=== PATIENT | female | born 2000 | race Two or more races ===

== ENCOUNTER 2024-11-11 08:04 | Emergency (ER) | payer BC, MEDICAID, SELFPAY ==
[2024-11-11 08:14] VITALS: BP 150/84; PULSE 71; RESP 18; TEMP 36.7; O2SAT 100; BMI 35.4
--- NOTE | 2024-11-11 08:24 | XR_ITS ---
Examination: Complete OB ultrasound, less than 14 weeks, transabdominal Date and time of exam: November 11, 2024 0920 hrs. Indications: Pelvic pain beginning 2 weeks ago Technique: Obstetrical ultrasound images less than 14 weeks performed via transabdominal imaging Findings: A normal shaped single intrauterine gestation is present in the uterus. pole 3.6 cm corresponds to 10 weeks 3 days gestational age Cardiac motion 160 BPM Ultrasonographic survey of visible and placental structures unremarkable. Amniotic fluid volume appears appropriate for this estimated gestational age. Right ovary 2.3 x 2.4 cm arterial flow Left ovary 3.7 x 3.6 cm arterial flow Impression: Viable intrauterine gestation 10 weeks 3 days.
[2024-11-11 09:11] LABS: Collection Type, Urine Clean Catch; RBC,Urine 0 /hpf (0-3); Squamous Epithelial Cell,Urine 0 /hpf (0-5); WBC,Urine 0 /hpf (0-5)
[2024-11-11 09:20] LABS: Basophils # (Auto) 0.1 Thou/mm3 (0.0-0.2); Basophils % (Auto) 1 % (0-2.5); Eosinophils # (Auto) 0.1 Thou/mm3 (0.0-0.5); Eosinophils % (Auto) 1 % (0-10); Hematocrit 40.1 % (36.0-46.0); Hemoglobin 13.7 g/dL (12.0-16.0); Immature Granulocytes % (Auto) 0 % (0-0); Immature Granulocytes Auto 0.04 Thou/mm3 (0.00-0.00); Lymphocytes # (Auto) 1.8 Thou/mm3 (1.0-4.8); Lymphocytes % (Auto) 20 % (10-50); Mean Corpuscular HGB Conc 34.2 g/dl (31.0-37.0); Mean Corpuscular Hemoglobin 30.9 pg (25.0-35.0); Mean Corpuscular Volume 91 fL (80-100); Monocytes # (Auto) 0.9 Thou/mm3 (0.0-0.8); Monocytes % (Auto) 10 % (0-12); Neutrophils # (Auto) 6.1 Thou/mm3 (1.8-7.7); Neutrophils % (Auto) 68 % (37-80); Nucleated Red Blood Cell % 0 /100 WBC (0); Platelet Count 238 Thou/mm3 (140-440); RDW Standard Deviation 43.4 fL (36.4-46.3); Red Blood Count 4.43 Miln/mm3 (4.00-5.20); White Blood Count 8.9 Thou/mm3 (3.6-11.0)
[2024-11-11 09:25] LABS: Bilirubin,Urine Negative (Negative); Blood,Urine Negative (Negative); Clarity,Urine Clear (Clear/Hazy); Color,Urine Colorless (Lt Yel-Yel); Glucose, Urine Negative (Negative); Ketones,Urine Negative (Negative); Leukocyte Esterase,Urine Negative (Negative); Nitrite,Urine Negative (Negative); PH,Urine 6.5 (5.0-7.0); Protein,Urine Negative (Neg - Trace); Specific Gravity,Urine 1.005 (1.001-1.035); Urobilinogen,Urine Negative mg/dL (0.0-1.0)
[2024-11-11 09:51] LABS: Alanine Aminotransferase 30 U/L (10-49); Albumin, Serum 4.6 gm/dL (3.5-5.0); Albumin/Globulin Ratio 1.8 (1.2-2.2); Alkaline Phosphatase 45 U/L (46-116); Anion Gap 8 (7-16); Aspartate Amino Transferase 16 U/L (0-34); BUN/Creatinine Ratio 10 Ratio (12-20); Bilirubin,Total 0.4 mg/dL (0.3-1.2); Blood Urea Nitrogen 6 mg/dL (9-23); Calcium 9.6 mg/dL (8.3-10.6); Calcium (Corrected) 9.6 mg/dL (8.5-10.1); Carbon Dioxide 23.1 mMol/L (20.0-31.0); Chloride 104 mMol/L (98-107); Creatinine (Component) 0.6 mg/dL (0.6-1.3); Estimated Creatinine Clearance 169.1 mL/min (>60); Globulin 2.5 gm/dL (2.3-3.5); Glucose 93 mg/dL (74-106); Osmolality,Calculated 267 (275-295); Potassium 3.8 mMol/L (3.4-5.1); Sodium 135 mMol/L (136-145); Total Protein 7.1 gm/dL (5.7-8.2); eGFR > 60 See Note
[2024-11-11 10:26] LABS: Beta HCG,Quantitative 49260 mIU/mL (<5.0)
--- NOTE | 2024-11-11 10:42 | EDNOTE_ITS ---
<Statement entered by Debra Bolden MD - 11/12/24 11:46> As co-signing physician, I was present and available for consult prn. I concur with the plan and care as documented by the midlevel provider. ED OB Contraction Preg RMI/HPI General Chief complaint: OB/Uterine Contractions Stated complaint: 14 WEEKS IUP / AB PAIN Time Seen by Provider: 11/11/24 08:07 Arrival date/time: 11/11/24 08:04 24-year-old female presents to the emergency department complaints of pelvic pain patient reports being approximately 14 weeks patient reports no dysuria polyuria patient reports no fever nausea vomiting Limitations: no limitations Related Data Home Medications ?Medication ?Instructions ?Recorded ?Confirmed albuterol sulfate 90 mcg/actuation 2 puff inhalation Q6H PRN 01/14/18 01/14/18 aerosol inhaler (Ventolin HFA) Shortness Of Breath Or Wheezing beclomethasone dipropionate 40 1 puff inhalation Q12H PRN 01/14/18 01/14/18 mcg/actuation aerosol inhaler Shortness Of Breath (Qvar) sumatriptan succinate 50 mg tablet 0.5 - 1 tab PO QDAY PRN Migraine 01/14/18 01/14/18 Headache Allergies Allergy/AdvReac Type Severity Reaction Status Date / Time codeine Allergy Mild Hives Verified 11/11/24 08:05 Review of Systems Review of Systems Systems Reviewed: All systems reviewed, normal except as documented Constitutional Constitutional: Reports system reviewed and no additional complaints, except as documented, Denies fever(s) and Denies headache(s) Eyes Eyes: Reports system reviewed and no additional complaints, except as documented and Denies blurry vision ENT Ears, Nose, Mouth, and Throat: Reports system reviewed and no additional complaints, except as documented, Denies headache(s), Denies nasal congestion and Denies nasal discharge Cardiovascular Cardiovascular: Reports system reviewed and no additional complaints, except as documented, Denies chest pain and Denies dyspnea Respiratory Respiratory: Reports system reviewed and no additional complaints, except as documented, Denies chest congestion, Denies cough and Denies dyspnea Gastrointestinal Gastrointestinal: Reports system reviewed and no additional complaints, except as documented, Denies abdominal pain, Denies nausea and Denies vomiting Genitourinary Genitourinary: Reports system reviewed and no additional complaints, except as documented, Denies abnormal vaginal bleeding and Reports pelvic pain Integumentary/Breasts Skin/Breast: Reports system reviewed and no additional complaints, except as documented and Denies rash Neurologic Neurologic: Reports system reviewed and no additional complaints, except as documented, Reports as per HPI and Denies headache(s) Past Medical History Past Medical History NEUROLOGIC: Positive Neurological Disorders and Migraine RESPIRATORY: Positive Asthma Social History SMOKING STATUS: Never smoker ED Exam General Limitations: Present no limitations General appearance: Present alert and in no apparent distress Head Head exam: Present atraumatic Eye Eye exam: Present normal appearance, PERRL and EOMI ENT ENT exam: Present normal exam, normal oropharynx and mucous membranes moist Neck Neck exam: Present normal inspection, full ROM and trachea midline Chest Chest inspection: Present normal inspection and symmetric chest wall rise Respiratory Respiratory exam: Present normal lung sounds bilaterally Cardiovascular Cardiovascular exam: Present regular rate, normal rhythm and normal heart sounds Abdominal Exam Abdominal exam: Present soft and normal bowel sounds Extremities Exam Extremities exam: Present normal inspection and full ROM Back Exam Back exam: Present normal inspection and full ROM Neurological Exam Neurological exam: Present alert, oriented X3 and CN II-XII intact Psychiatric Psychiatric exam: Present normal affect and normal mood Skin Skin exam: Present warm, dry, intact and normal color Course Quality Measures none Orders Category Date Time Status US OB <= 14 weeks fetus Stat Exams 11/11/24 08:24 Completed ABO/RH Type Stat Lab 11/11/24 08:57 Completed Beta HCG,Quantitative Stat Lab 11/11/24 08:57 Completed CBC Stat Lab 11/11/24 08:57 Completed Comprehensive Metabolic Panel Stat Lab 11/11/24 08:57 Completed UA [Urinalysis] Stat Lab 11/11/24 08:49 Completed Urine Culture Stat Lab 11/11/24 08:49 Received Vital Signs Vital signs: Vital Signs Temperature 98.0 F 11/11/24 08:14 Pulse Rate 71 11/11/24 08:14 Respiratory Rate 18 11/11/24 08:14 Blood Pressure 150/84 H 11/11/24 08:14 Pulse Oximetry (%) 100 11/11/24 08:14 Oxygen Delivery Method Room Air 11/11/24 08:14 O2 saturation 100% room air within normal limits OB/Uterine Contractions MDM Narrative MDM Narrative:: 24-year-old female presents to the emergency department complaints of pelvic pain patient reports being approximately 14 weeks patient reports no dysuria polyuria patient reports no fever nausea vomiting On exam patient has no right-sided abdominal pain patient reports pelvic pain Lab work as well as ultrasound obtained no acute emergent findings noted Patient discharged home in no distress to follow-up with primary care doctor in the next 24 to 48 hours and for any worsening symptoms to return to the ER immediately Patient data External records reviewed:: [facility] previous records Clinical information provided by:: patient Social determinants that could affect healthcare access:: none Patient has the following chronic illnesses:: none How is presenting disease/condition affected by chronic disease/condition?: no chronic disease Evaluation data The following diagnostics were reviewed and interpreted by me:: lab results and radiology exam(s) Lab and/or radiology exams considered but not ordered:: Labs and radiology obtained Interpretation Summary: Reviewed by me Medications / Prescriptions Medications or Prescriptions considered but not ordered:: No meds Medication administrations:: No meds Consultations Consultation(s) initiated? (list below): No Diagnosis OB Contractions Differential Diagnosis: other (Threatened , missed , pelvic pain ) Most likely diagnosis given after review of the tests above:: Pelvic pain during Admission Indicated Admission indicated?: not indicated Explain why admission is indicated or not indicated:: no criteria Admission Request Was there a request for admission?: No Disposition Plan Disposition Plan: Discharge Discharge Attestation Discharge Attestation: The patient and all family members were given an opportunity to ask questions and understood the discharge instructions. Discharge instructions specifically effects, indications for sooner follow up or return to the emergency department, and the expected course of current diagnosis. Patient condition: Stable Discharge Plan Plan Patient Disposition: HOME (Self Care) Disposition Comment: Stable Prescriptions/Referrals Prescriptions/Med Rec: No Action sumatriptan succinate 50 mg Tablet 0.5 - 1 tab PO QDAY PRN (Reason: Migraine Headache) albuterol sulfate [Ventolin HFA] 90 mcg/actuation Hfa Aerosol Inhaler 2 puff INHALATION Q6H PRN (Reason: Shortness Of Breath Or Wheezing) beclomethasone dipropionate [Qvar] 40 mcg/actuation Aerosol 1 puff INHALATION Q12H PRN (Reason: Shortness Of Breath) Referrals: Dianne Wade FNP [Primary Care Provider] - 11/12/24 Problem List Clinical Impression: Pelvic pain affecting Patient/Caregiver Discharge Instructions Education Materials: Medicine for Pain Additional Instructions: Please follow up with your primary care doctor in the next 24-48hrs for any worsening symptoms return here immediately Print Language: Slovenian Stand Alone Forms: Asha Award Info., Work/School Release, Patient Portal Info Letter PA/GUITAR REPAIR TECHNICIAN Supervising Physician PA/GUITAR REPAIR TECHNICIAN Supervising Physician: Dr. Fuentes
== END 2024-11-11 11:21 | disposition home or self-care (01) ==
PROVIDERS: Nurse Practitioner Primary Care; Emergency Provider Emergency Medicine; PCP Registered Nurse Community Health
DX: O26.892 Other specified pregnancy related conditions, second trimester (principal); R10.2 Pelvic and perineal pain; Z3A.14 14 weeks gestation of pregnancy
CPT/HCPCS: 36415; 76801; 80053; 81001; 84702; 85025; 86900; 86901; 87086; 99284

== ENCOUNTER 2025-05-31 00:54 | Inpatient (IN) | payer BC, MEDICAID, SELFPAY ==
[2025-05-31] VITALS (29 sets, daily range): BP systolic 88–142; BP diastolic 50–85; PULSE 68–93; RESP 16–18; TEMP 36.4–37.1; O2SAT 96–98; BMI 41.8
[2025-05-31 02:26] LABS: Collection Type, Urine Clean Catch
[2025-05-31 02:29] LABS: Basophils # (Auto) 0.0 Thou/mm3 (0.0-0.2); Basophils % (Auto) 0 % (0-2.5); Eosinophils # (Auto) 0.1 Thou/mm3 (0.0-0.5); Eosinophils % (Auto) 1 % (0-10); Hematocrit 35.4 % (36.0-46.0); Hemoglobin 12.4 g/dL (12.0-16.0); Immature Granulocytes Auto 0.05 Thou/mm3 (0.00-0.00); Lymphocytes # (Auto) 1.9 Thou/mm3 (1.0-4.8); Lymphocytes % (Auto) 22 % (10-50); Mean Corpuscular HGB Conc 35.0 g/dl (31.0-37.0); Mean Corpuscular Hemoglobin 30.9 pg (25.0-35.0); Mean Corpuscular Volume 88 fL (80-100); Monocytes # (Auto) 1.2 Thou/mm3 (0.0-0.8); Monocytes % (Auto) 13 % (0-12); Neutrophils # (Auto) 5.6 Thou/mm3 (1.8-7.7); Neutrophils % (Auto) 64 % (37-80); Nucleated Red Blood Cell # 0.00 Thou/mm3 (0.00-0.00); Nucleated Red Blood Cell % 0 /100 WBC (0); Platelet Count 176 Thou/mm3 (140-440); RDW Standard Deviation 44.3 fL (36.4-46.3); Red Blood Count 4.01 Miln/mm3 (4.00-5.20); White Blood Count 8.8 Thou/mm3 (3.6-11.0)
[2025-05-31 02:41] LABS: Bacteria,Urine Rare; Bilirubin,Urine Negative (Negative); Blood,Urine 1+ (Negative); Clarity,Urine Clear (Clear/Hazy); Color,Urine Yellow (Lt Yel-Yel); Glucose, Urine Negative (Negative); Ketones,Urine Negative (Negative); Leukocyte Esterase,Urine Negative (Negative); Nitrite,Urine Negative (Negative); PH,Urine 6.0 (5.0-7.0); Protein,Urine Trace (Neg - Trace); RBC,Urine 5 /hpf (0-3); Specific Gravity,Urine 1.036 (1.001-1.035); Squamous Epithelial Cell,Urine 6 /hpf (0-5); Urobilinogen,Urine Negative mg/dL (0.0-1.0); WBC,Urine 1 /hpf (0-5)
[2025-05-31 03:06] LABS: Creatinine,Random Urine 214 mg/dL (30-125); Fibrinogen 519 mg/dL (175-375); INR 0.9 (0.9-1.3); Partial Thromboplastin Time 28.5 Seconds (22.0-36.0); Protein Total, Random Urine 38 mg/dL (1-14); Prothrombin Time 10.3 Seconds (9.0-12.2)
[2025-05-31 03:07] LABS: Alanine Aminotransferase 20 U/L (10-49); Albumin, Serum 3.8 gm/dL (3.5-5.0); Albumin/Globulin Ratio 1.6 (1.2-2.2); Alkaline Phosphatase 166 U/L (46-116); Anion Gap 11 (7-16); Aspartate Amino Transferase 46 U/L (0-34); BUN/Creatinine Ratio 17 Ratio (12-20); Bilirubin,Total 0.2 mg/dL (0.3-1.2); Blood Urea Nitrogen 10 mg/dL (9-23); Calcium 9.2 mg/dL (8.3-10.6); Calcium (Corrected) 9.4 mg/dL (8.5-10.1); Carbon Dioxide 20.7 mMol/L (20.0-31.0); Chloride 109 mMol/L (98-107); Creatinine (Component) 0.6 mg/dL (0.6-1.3); Estimated Creatinine Clearance 183.6 mL/min (>60); Globulin 2.4 gm/dL (2.3-3.5); Glucose 91 mg/dL (74-106); Osmolality,Calculated 280 (275-295); Potassium 3.8 mMol/L (3.4-5.1); Sodium 141 mMol/L (136-145); Total Protein 6.2 gm/dL (5.7-8.2); Uric Acid 5.4 mg/dL (3.1-7.8); eGFR > 60 See Note
[2025-05-31 03:25] LABS: Syphilis Nonreactive (Nonreactive)
--- NOTE | 2025-05-31 10:42 | ESHP_ITS ---
Documentation for date of: 05/31/25 OB Labor/Induct. HPI History of Present Illness Chief complaint: encounter for IOL for h/o chronic hypertension and not on medication : 1 Para: 0 History of sections: No History of : No Date of last menstrual period: 08/07/24 LUCY: 06/06/25 Gestational age based on last menstrual period: 42 Indication for induction: medical complication History of Present Dating criteria: LMP confirmed by 2nd trimester US Adequate Care: Yes (yes) Ultrasounds: normal mid trimester US Obstetrical complications: other Medical complications: none Labs Labs: Negative: RPR, Hepatitis B, Rubella Titre, HIV, Chlamydia, Gonorrhea and Group Beta Strep and Unknown: Herpes Type 1, Herpes Type 2 and Covid-19 Review of Systems Review of Systems Systems Reviewed: All systems reviewed, normal except as documented Past Medical History Surgical History SURGICAL: Negative Section Meds Home Medications and Allergies Home Medications ?Medication ?Instructions ?Recorded ?Confirmed ?Type albuterol sulfate 90 mcg/actuation 2 puff inhalation Q 6H PRN 01/14/18 05/31/25 History aerosol inhaler (Ventolin HFA) Shortness Of Breath Or Wheezing sumatriptan succinate 50 mg tablet 0.5 - 1 tab PO QDAY PRN Migraine 01/14/18 05/31/25 History Headache vits no.129-ferrous fum tab 05/31/25 History 27 mg iron-folic acid 800 mcg tablet ( One Daily) Allergies Allergy/AdvReac Type Severity Reaction Status Date / Time codeine Allergy Mild Hives Verified 05/31/25 02:53 OB Exam Physical Exam Vital signs: Temp Pulse Resp BP Pulse Ox 98.2 F 69 16 128/69 96 05/31/25 04:48 05/31/25 10:37 05/31/25 04:48 05/31/25 10:37 05/31/25 09:28 Constitutional Constitutional: no acute distress Routine Respiratory Exam Respiratory: Present CTA bilaterally Routine Cardiovascular Exam Cardiovascular: Present RRR Routine Abdominal Exam Abdominal: Present soft Comments: gravid uterus term Routine Exam Patient deferred: external exam Detailed Labor and Delivery Exam Dilation (cm): 1 cm Effacement (%): thick station: -3 Consistency: medium Presentation: Vertex Membranes: intact Baseline heart rate: 145 monitor accelerations: 15x15 Contraction frequency (min): irregular Contraction intensity: Mild Routine Extremities Exam Extremities: Present full ROM and pulses intact Routine Skin Exam Skin: Present intact and normal turgor Routine Neurological Exam Neurological: Present alert, oriented X3 and vision grossly intact OB Results Labs 05/31/25 01:25 05/31/25 01:25 Labs: Short CBC 05/31/25 Range/Units 01:25 WBC 8.8 (3.6-11.0) Thou/mm3 Hgb 12.4 (12.0-16.0) g/dL Hct 35.4 L (36.0-46.0) % Plt Count 176 (140-440) Thou/mm3 BMP 05/31/25 01:25 Sodium 141 Potassium 3.8 Chloride 109 H Carbon Dioxide 20.7 BUN 10 Creatinine 0.6 Glucose 91 Calcium 9.2 Liver Function 05/31/25 Range/Units 01:25 Total Bilirubin 0.2 L (0.3-1.2) mg/dL AST 46 H (0-34) U/L ALT 20 (10-49) U/L Alkaline Phosphatase 166 H (46-116) U/L Albumin 3.8 (3.5-5.0) gm/dL Urine 05/31/25 Range/Units 01:25 Urine Color Yellow (Lt Yel-Yel) Urine Clarity Clear (Clear/Hazy) Urine pH 6.0 (5.0-7.0) Ur Specific [place] 1.036 H (1.001-1.035) Urine Protein Trace (Neg - Trace) Urine Glucose (UA) Negative (Negative) Impressions Impression: mild elevationof AST / urine P/C is <0.3 OB Assessment & Plan Additional Plan Induction method: per misoprostol protocol Plan: induction
[2025-06-01] VITALS (25 sets, daily range): BP systolic 99–137; BP diastolic 53–93; PULSE 68–89; RESP 16–18; TEMP 36.6–36.9
--- NOTE | 2025-06-01 08:57 | PD.LDPN ---
Documentation for date of: 06/01/25 OB Labor Progress Note Pelvic Exam Dilation (cm): 3 Effacement (%): THICK station: -3 Amniotic membrane status: Intact Contractions Monitor mode: External Contraction frequency: OCCASIONAL Contraction pattern: Coupling Contraction intensity: Mild Status status: Category l Assessment and Plan Comments: Taken over care from overnight on-call physician no cervical change after 1 round of misoprostol, patient is now on a second round of misoprostol Continue current management, continue maternal- monitoring.
[2025-06-01] MEDS: fentaNYL CIT INJ 50 mCg/ML AMP 2ML 100 MCG IV (22:45)
[2025-06-02] VITALS (125 sets, daily range): BP systolic 92–144; BP diastolic 52–92; PULSE 69–168; RESP 17–18; TEMP 36.7–37.1; O2SAT 81–100
[2025-06-02] MEDS: RINGERS LACTATED 1000 ML 1,000 ML 100 ML IV (00:40)
[2025-06-02] MEDS: OXYTOCIN in NS 30 units 30 UNIT/500 ML BAG IV (03:10)
[2025-06-02] MEDS: OXYTOCIN in NS 20 units 20 UNIT/1,000 ML BAG 125 UNIT IV (07:28)
[2025-06-02] MEDS: MINERAL OIL 30 ML UDC TOP (07:37)
--- NOTE | 2025-06-02 07:44 | PD.LDPPPRG ---
Exam Vital Signs Temp Pulse Resp BP Pulse Ox 98.1 F 107 H 17 116/74 81 L 06/02/25 05:35 06/02/25 07:33 06/02/25 03:15 06/02/25 07:33 06/02/25 07:25 Objective Labs 05/31/25 01:25 05/31/25 01:25 Assessment & Plan Problem List (1) Vacuum-assisted vaginal delivery: Status: Acute Time Spent With Patient Time: Total time spent is greater than 50% in coordination of care (as documented) at patient's floor/unit and/or counseling patient:
--- NOTE | 2025-06-02 07:45 | PD.LDDELS ---
Vacuum Assisted Delivery General Patient Counseled by physician:: Yes Informed consent to patient:: Yes Estimated weight:: 6 lb 8 oz Cervical dilation:: fully dilated station:: +4 position:: OA Molding:: No Caput:: No Vacuum Application Vacuum type:: Mityvac Vacuum application:: flexing median Total vacuum time (min):: 1 Maximum pressure (cm Hg):: 50 Cup Placement Flexion point identified:: Yes Cup approp. for head position:: Yes Maternal tissue excluded:: Yes Vacuum Procedure Number of pulls (contractions):: 2 Number of pop-offs:: 1 Recommended range maintained:: Yes Vacuum reduced between pulls:: Yes Advancement made each pull:: Yes Vacuum successful:: Yes Immediate Evaluation Description of injury:: No apparent injury Additional Comments Additional comments: Vacuum applied due to maternal exhaustion with poor expulsive effort. Data ([place]) Data Hx Section: No : 1 Delivery Data ([place]) Labor Data Initiation of labor: Spontaneous Induction/Augmentation Agent: Cytotec-PO, Cervidil and Artificial ROM ROM date: 06/02/25 ROM time: 06:49 Amniotic membrane rupture type: Artificial Amniotic fluid description: Clear Delivery Data EDC: 06/07/25 EDC calculated by:: LMP/early US confirmation Onset of labor date: 06/02/25 Onset of labor time: 00:00 Complete dilation date: 06/02/25 Complete dilation time: 06:50 [place] delivery date: 06/02/25 [place] delivery time: 07:22 Gestational age (weeks): 39 Gestational age (days): 2 Placenta delivery date: 06/02/25 Stage 1 total time: Labor - Stage 1 Duration 6 hours and 50 minutes Delivered by: Singh BRANHAM Delivery nurse: Naun Cox nurse: BILL FAY Regulatory Process Manager at delivery: No Support person(s) at delivery: FOB AT BEDSIDE Other staff at delivery: Liv VARGAS Delivery Method Delivery method: Operative Vaginal Delivery Presentation: Vertex Anesthesia Type Anesthesia Type: Epidural Placenta Placenta delivery description: Spontaneous Cord blood sent to lab: Yes cord blood collection: Cord Blood Type Episiotomy Episiotomy description: None Lacerations #1: Perineal: 2nd degree Perineal repair Sutures used for repair: 3.0 Chromic EBL Estimated blood loss (ml): 150 Umbilical Cord cord description: 3 Vessels Complications Complications: None [place] Data ([place]) Data order: 1 Bethany's gender: Female Identification band number: [id number] weight (gms): 6 lb 15.818 oz Weight (pounds): 6 lbs and 15.8 ozs 1 minute: 9 5 minutes: 9
--- NOTE | 2025-06-02 10:01 | CHAP ---
Met with family earlier and gave encouragement to the new parents, then at 0955 I gave a blessing on the and family.
[2025-06-02 13:16] LABS: Basophils # (Auto) 0.0 Thou/mm3 (0.0-0.2); Basophils % (Auto) 0 % (0-2.5); Eosinophils # (Auto) 0.0 Thou/mm3 (0.0-0.5); Eosinophils % (Auto) 0 % (0-10); Hematocrit 35.4 % (36.0-46.0); Hemoglobin 12.5 g/dL (12.0-16.0); Immature Granulocytes Auto 0.11 Thou/mm3 (0.00-0.00); Lymphocytes # (Auto) 1.5 Thou/mm3 (1.0-4.8); Lymphocytes % (Auto) 10 % (10-50); Mean Corpuscular HGB Conc 35.3 g/dl (31.0-37.0); Mean Corpuscular Hemoglobin 31.1 pg (25.0-35.0); Mean Corpuscular Volume 88 fL (80-100); Monocytes # (Auto) 1.1 Thou/mm3 (0.0-0.8); Monocytes % (Auto) 8 % (0-12); Neutrophils # (Auto) 11.7 Thou/mm3 (1.8-7.7); Neutrophils % (Auto) 81 % (37-80); Nucleated Red Blood Cell # 0.00 Thou/mm3 (0.00-0.00); Nucleated Red Blood Cell % 0 /100 WBC (0); Platelet Count 178 Thou/mm3 (140-440); RDW Standard Deviation 43.5 fL (36.4-46.3); Red Blood Count 4.02 Miln/mm3 (4.00-5.20); White Blood Count 14.4 Thou/mm3 (3.6-11.0)
[2025-06-02] MEDS: ACETAMINOPHEN 325 MG TABLET 650 MG PO (15:41)
[2025-06-03 00:25] VITALS: BP 122/80; PULSE 89; RESP 18; TEMP 36.8; O2SAT 97
[2025-06-03 03:53] VITALS: BP 126/84; PULSE 81; RESP 19; TEMP 36.7; O2SAT 98
--- NOTE | 2025-06-03 06:14 | PD.LDPPPRG ---
Subjective Subjective Interval history: Patient denies any primary complaint Exam Vital Signs Temp Pulse Resp BP Pulse Ox O2 Del Method 98.1 F 81 19 126/84 98 Room Air 06/03/25 03:53 06/03/25 03:53 06/03/25 03:53 06/03/25 03:53 06/03/25 03:53 06/03/25 03:53 Routine Respiratory Exam Comments: Clear to auscultation bilaterally Routine Cardiovascular Exam Comments: Regular rate and rhythm Routine Abdominal Exam Comments: Fundus is firm nontender Routine Extremities Exam Comments: Nontender Objective Labs 06/02/25 12:52 05/31/25 01:25 Labs: Laboratory Results - last 24 hr 06/02/25 12:52 WBC 14.4 H D RBC 4.02 Hgb 12.5 Hct 35.4 L MCV 88 MCH 31.1 MCHC 35.3 RDW Std Deviation 43.5 Plt Count 178 Neut % (Auto) 81 H Lymph % (Auto) 10 [place] % (Auto) 8 Eos % (Auto) 0 Baso % (Auto) 0 Neut # (Auto) 11.7 H Lymph # (Auto) 1.5 [place] # (Auto) 1.1 H Eos # (Auto) 0.0 Baso # (Auto) 0.0 Immature Gran # (Auto) 0.11 H Absolute Nucleated RBC 0.00 Immature Gran % 1 H Nucleated RBC % 0 Assessment & Plan Problem List (1) Vacuum-assisted vaginal delivery: Status: Acute Assessment and plan: day #1 Discharge home Discharge instructions given Follow-up in the office in 6 weeks Time Spent With Patient Time: Total time spent is greater than 50% in coordination of care (as documented) at patient's floor/unit and/or counseling patient:
[2025-06-03 07:20] VITALS: BP 125/83; PULSE 78; RESP 18; TEMP 36.3; O2SAT 98
[2025-06-05 03:03] LABS: Albumin, Random Urine 100 %; Alpha 1 Globulin, Random Urine 0 %; Alpha 2 Globulin, Random Urine 0 %; Beta Globulin, Random Urine 0 %; Gamma Globulin, Random Urine 0 %; Protein,Total,Random Urine 30 mg/dL (5-24); Protein/Creatinine Ratio 151 mg/g creat (24-184)
[2025-06-05 05:05] LABS: Creatinine, Random Urine 199 mg/dL (20-275); Protein/Creatinine Ratio mg/mg 0.151 (0.024-0.184)
== END 2025-06-03 10:50 | disposition home or self-care (01) | DRG 807 ==
LOC: S4SX 06-02 07:40 → S4NX 06-02 10:08
PROVIDERS: Admitting Provider Obstetrics & Gynecology; Visit Provider Specialist
DX: O10.92 Unspecified pre-existing hypertension complicating childbirth (principal); Z37.0 Single live birth; O48.0 Post-term pregnancy; O70.1 Second degree perineal laceration during delivery; O75.81 Maternal exhaustion complicating labor and delivery; Z3A.42 42 weeks gestation of pregnancy; Z88.5 Allergy status to narcotic agent
CPT/HCPCS: 36415; 80053; 81001; 82570; 84156; 84166; 84550; 85025; 85384; 85610; 85730; 86780; 86850; 86900; 86901; J2590; J2795; J3010; J7120; A9270